=== PATIENT | male | born 2000 | race Caucasian/White ===

== ENCOUNTER 2019-05-01 06:30 | Emergency (ER) | payer BC, OTHER ==
[2019-05-01] MEDS ORDERED: diphenhydrAMINE 50 MG/ML SDV ONE (06:34)
[2019-05-01] MEDS ORDERED: methylPREDNISolone Sodium Succinate 125 MG/2 ML SDV ONE (06:34)
[2019-05-01] MEDS ORDERED: Albuterol/Ipratropium 3.0-0.5 MG/3 ML Neb Soln ONE (06:40)
[2019-05-01] MEDS ORDERED: Famotidine 20 MG/2 ML SDV IVPUSH ONE (06:42)
[2019-05-01] MEDS ORDERED: Albuterol/Ipratropium 3.0-0.5 MG/3 ML Neb Soln NEB ONE (06:42)
[2019-05-01] MEDS ORDERED: Sodium Chloride 0.9% 1,000 ML IV ONE (06:42)
--- NOTE | 2019-05-01 06:42 | EDM.PDOC ---
ED HPI GENERAL MEDICAL PROBLEM - General Chief Complaint: Allergic Reaction Stated Complaint: ALLERGIC REACTION Time Seen by Provider: 05/01/19 06:40 Source of Information: Reports: Patient - History of Present Illness INITIAL COMMENTS - FREE TEXT/NARRATIVE: HISTORY AND PHYSICAL: History of present illness: []Patient presents with allergic reaction/urticarial rash that began last night her yesterday at approximately 4 PM awakening him from sleep at 5 AM this morning with itching shortness of breath sensation he presents by private vehicle and no no apparent distress Urticarial rash on arms trunk and neck No fever nausea vomiting chills sweats no chest pain headache dizziness palpitation no lip swelling tongue swelling or oral pharyngeal edema no stridor Review of systems: As per history of present illness and below otherwise all systems reviewed and negative. Past medical history: As per history of present illness and as reviewed below otherwise noncontributory. Surgical history: As per history of present illness and as reviewed below otherwise noncontributory. Social history: No reported history of drug or alcohol abuse. Family history: As per history of present illness and as reviewed below otherwise noncontributory. Physical exam: HEENT: Atraumatic, normocephalic, pupils reactive, negative for conjunctival pallor or scleral icterus, mucous membranes moist, throat clear, neck supple, nontender, trachea midline.Lip swelling tongue swelling or oral pharyngeal edema Lungs: Clear to auscultation, breath sounds equal bilaterally, chest nontender. Heart: S1S2, regular, negative for clicks, rubs, or JVD. Abdomen: Soft, nondistended, nontender. Negative for masses or hepatosplenomegaly. Negative for costovertebral tenderness. Pelvis: Stable nontender. Genitourinary: Deferred. Rectal: Deferred. Extremities: Atraumatic, negative for cords or calf pain. Neurovascular unremarkable. Neuro: Awake, alert, oriented. Cranial nerves II through XII unremarkable. Cerebellum unremarkable. Motor and sensory unremarkable throughout. Exam nonfocal. Diagnostics: [Clinical ] Therapeutics: [Normal saline DuoNeb Solu-Medrol Benadryl Famotidine Patient has EpiPen available at home Prednisone 20 mg daily 5 days Zantac Benadryl RP W ] Impression: [ allergic reaction] Urticarial rash Definitive disposition and diagnosis as appropriate pending reevaluation and review of above. - Related Data Allergies Allergy/AdvReac Type Severity Reaction Status Date / Time cat dander Allergy Hives Verified 05/01/19 06:39 latex Allergy Hives Verified 05/01/19 06:39 methylphenidate Allergy Hallucinati Verified 05/01/19 06:39 [From Concerta] ons milk Allergy Hives Verified 05/01/19 06:39 peanut Allergy Hives Verified 05/01/19 06:39 Home Meds: Home Meds . [No Known Home Meds] 05/01/19 [History] ED ROS ALLERGIC REACTION - Review of Systems Review Of Systems: See Below ED EXAM GENERAL NO PERIP PULSE - Physical Exam Exam: See Below Course - Vital Signs Last Recorded V/S: Last Vital Signs Temp 96.4 F 05/01/19 06:32 Pulse 121 H 05/01/19 06:32 Resp 17 05/01/19 06:32 BP 153/82 H 05/01/19 06:32 Pulse Ox 93 L 05/01/19 06:32 - Orders/Labs/Meds Orders: Active Orders 24 hr Category Date Time Status RT Aerosol Therapy [RC] ASDIRECTED Care 05/01/19 06:42 Active Chest 1V Frontal [CR] Stat Exams 05/01/19 06:42 Taken Sodium Chloride 0.9% [Normal Saline] 1,000 ml Med 05/01/19 06:42 Active IV STAT Medication Orders Sodium Chloride (Normal Saline) 1,000 mls @ 999 mls/hr IV STAT ONE Stop: 05/01/19 07:42 Last Admin: 05/01/19 06:46 Dose: 999 mls/hr Meds: Medications Generic Name Dose Route Start Last Admin Trade Name Freq PRN Reason Stop Dose Admin Sodium Chloride 1,000 mls @ 999 mls/hr 05/01/19 06:42 05/01/19 06:46 Normal Saline IV 05/01/19 07:42 999 mls/hr STAT ONE Administration Discontinued Medications Generic Name Dose Route Start Last Admin Trade Name Freq PRN Reason Stop Dose Admin Albuterol/Ipratropium 3 ml 05/01/19 06:42 05/01/19 06:46 Duoneb 3.0-0.5 Mg/3 Ml NEB 05/01/19 06:43 3 ml ONETIME ONE Administration Albuterol/Ipratropium Confirm 05/01/19 06:40 05/01/19 06:47 Duoneb 3.0-0.5 Mg/3 Ml Administered 05/01/19 06:41 Not Given Dose 3 ml .ROUTE .STK-MED ONE Diphenhydramine HCl Confirm 05/01/19 06:34 05/01/19 06:46 Benadryl Administered 05/01/19 06:35 50 mg Dose Administration 50 mg .ROUTE .STK-MED ONE Famotidine 20 mg 05/01/19 06:42 05/01/19 07:02 Pepcid IVPUSH 05/01/19 06:43 20 mg ONETIME ONE Administration Methylprednisolone Sodium Succinate Confirm 05/01/19 06:34 05/01/19 06:47 Solu-Medrol Administered 05/01/19 06:35 125 mg Dose Administration 125 mg .ROUTE .STK-MED ONE Departure - Departure Time of Disposition: 07:06 Disposition: Home, Self-Care 01 Condition: Good Clinical Impression: Urticarial rash - Discharge Information Referrals: PCP,None [Primary Care Provider] - Additional Instructions: Benadryl 50 mg every 46 hours as needed Zantac 150 milligrams by mouth twice a day as needePrednisone 20 mg by mouth daily 5 days Return if symptoms persist or worsen Follow-up with primary care in 2 weeks sooner as needed [facility] [address] [place] [address] The following information is given to patients seen in the emergency department who are being discharged to home. This information is to outline your options for follow-up care. We provide all patients seen in our emergency department with a follow-up referral. The need for follow-up, as well as the timing and circumstances, are variable depending upon the specifics of your emergency department visit. If you don't have a primary care physician on staff, we will provide you with a referral. We always advise you to contact your personal physician following an emergency department visit to inform them of the circumstance of the visit and for follow-up with them and/or the need for any referrals to a consulting specialist. The emergency department will also refer you to a specialist when appropriate. This referral assures that you have the opportunity for follow-up care with a specialist. All of these measure are taken in an effort to provide you with optimal care, which includes your follow-up. Under all circumstances we always encourage you to contact your private physician who remains a resource for coordinating your care. When calling for follow-up care, please make the office aware that this follow-up is from your recent emergency room visit. If for any reason you are refused follow-up, please contact the [facility] emergency department at and asked to speak to the emergency department charge nurse. - My Orders Last 24 Hours: My Active Orders 05/01/19 06:42 RT Aerosol Therapy [RC] ASDIRECTED Chest 1V Frontal [CR] Stat Sodium Chloride 0.9% [Normal Saline] 1,000 ml IV STAT - Assessment/Plan Last 24 Hours: My Active Orders 05/01/19 06:42 RT Aerosol Therapy [RC] ASDIRECTED Chest 1V Frontal [CR] Stat Sodium Chloride 0.9% [Normal Saline] 1,000 ml IV STAT
--- NOTE | 2019-05-01 07:23 | CR ---
INDICATION: Allergic reaction ; Hives . Comparison: None. TECHNIQUE: Portable AP chest. FINDINGS: Normal size cardiac silhouette. Clear lung bates with no evidence of acute pneumonic infiltrates or CHF. No pneumothorax or pleural effusion. IMPRESSION: Negative AP chest. Dictated by Ridge Burnett MD @ May 01 2019 7:21AM Signed by Dr. Ridge Burnett @ May 01 2019 7:22AM
== END 2019-05-01 07:44 | disposition home or self-care (01) ==
LOC: MW.ED 06:30
DX: L50.0 Allergic urticaria (principal); Z91.040 Latex allergy status; Z91.010 Allergy to peanuts; Z91.011 Allergy to milk products; Z88.8 Allergy status to other drugs, medicaments and biological substances; Z91.048 Other nonmedicinal substance allergy status
CPT/HCPCS: 71045; 94640; 96361; 96374; 96375; 99283; J1200; J2930; J7040; S0028; J3490; J7620-GY

== ENCOUNTER 2022-09-24 08:14 | Day surgery (SDC) | payer BC, OTHER ==
[~2022-09-24 08:14] MED LIST: Lactated Ringers 1,000 ML IV SCH
[2022-09-24] MEDS ORDERED: fentaNYL 100 MCG/2 ML SDV ONE (08:28)
[2022-09-24] MEDS ORDERED: Propofol 200 MG/20 ML SDV ONE ×2 (08:28→09:23)
[2022-09-24] MEDS ORDERED: Lidocaine 2% 5 ML SDV ONE (08:28)
== END 2022-09-24 09:25 | disposition home or self-care (01) ==
LOC: MW.SDS 08:14
PROVIDERS: ATTEND Surgery
DX: K29.50 Unspecified chronic gastritis without bleeding (principal); K21.9 Gastro-esophageal reflux disease without esophagitis; K62.89 Other specified diseases of anus and rectum; Z83.79 Family history of other diseases of the digestive system
CPT/HCPCS: 43239; 45380; J2704; J3010; J7120; J3490